=== PATIENT | female | born 1985 | race Two or more races ===

== ENCOUNTER 2018-01-24 23:56 | Observation (INO) | payer OTHER ==
[2014-09-01 12:29] VITALS: BP 110/62
[~2018-01-24] VITALS: Ht 160 cm; Wt 75.7 kg
[2018-01-24] MEDS ORDERED: IV RINGERS,LACTATED 1000ML 1,000 ML IV SCH (23:58)
[2018-01-25 00:30] LABS: BILIRUBIN,URINE NEGATIVE (NEG); CLARITY,URINE CLEAR; COLOR,URINE YELLOW; NITRITE,URINE NEGATIVE (NEG); PROTEIN,URINE NEGATIVE (NEG-TRACE); UROBILINOGEN,URINE 0.2 mg/dL (0.2 mg/dL)
[2018-01-25 00:37] LABS: BACTERIA,URINE MODERATE /HPF (0-FEW); BARBITURATES NEG (NEG); BENZODIAZEPINES NEG (NEG); CANNABINOIDS NEG (NEG); COCAINE NEG (NEG); METHADONE NEG (NEG); OPIATES NEG (NEG); PHENCYCLIDINE NEG (NEG); RBC,URINE 0 /HPF (0-2)
[2018-01-25 00:38] LABS: SQUAMOUS EPITHELIAL CELL,UR FEW /LPF
[2018-01-25 00:41] LABS: AMPHETAMINE/METHAMPHETAMINE NEG (NEG)
== END 2018-01-25 02:25 | disposition home or self-care (01) ==
LOC: 3 SO LND 23:56
PROVIDERS: ADMIT Obstetrics & Gynecology; ATTEND Obstetrics & Gynecology
DX: O26.893 Other specified pregnancy related conditions, third trimester (principal); R10.9 Unspecified abdominal pain; Z3A.38 38 weeks gestation of pregnancy; Z79.899 Other long term (current) drug therapy
CPT/HCPCS: 80307; 81001; 87086; G0378; G0379; G0479

== ENCOUNTER 2018-01-30 17:10 | Inpatient (IN) | payer OTHER ==
[~2018-01-30] VITALS: Ht 160 cm; Wt 76.7 kg
[~2018-01-30 17:10] MED LIST: PENICILLIN G K 2,500,000 UNIT in IV DEXTROSE 5% 50 ML IV SCH
[2018-01-30] MEDS ORDERED: IV RINGERS,LACTATED 1000ML 1,000 ML IV SCH ×2 (17:22→18:14)
[2018-01-30] MEDS ORDERED: MAG HYDROX/ALUMINUM HYD/SIMETH 30 ML ORAL.SUSP PO PRN (17:30)
[2018-01-30] MEDS ORDERED: ONDANSETRON PF 4 MG/2 ML VIAL. IV PRN (17:30)
[2018-01-30 17:32] LABS: BILIRUBIN,URINE NEGATIVE (NEG); COLOR,URINE YELLOW; NITRITE,URINE NEGATIVE (NEG); PROTEIN,URINE NEGATIVE (NEG-TRACE); UROBILINOGEN,URINE 0.2 mg/dL (0.2 mg/dL)
[2018-01-30 17:38] LABS: CLARITY,URINE CLEAR
[2018-01-30 17:40] LABS: BACTERIA,URINE MANY /HPF (0-FEW); RBC,URINE 0 /HPF (0-2); SQUAMOUS EPITHELIAL CELL,UR MOD /LPF
[2018-01-30] MEDS ORDERED: OXYTOCIN 30 UNIT/500 ML PREMIX 500 ML IV PRN ×2 (18:15)
[2018-01-30] MEDS ORDERED: BUTORPHANOL 2 MG/ML VIAL. IV PRN ×2 (18:15)
[2018-01-30] MEDS ORDERED: PENICILLIN G K 5,000,000 UNIT in IV DEXTROSE 5% 100ML 100 ML IV ONE (18:15)
[2018-01-30] MEDS ORDERED: IBUPROFEN 800 MG TABLET. PO PRN (18:15)
[2018-01-30] MEDS ORDERED: LIDOCAINE 1% PF 30 ML VIAL. INJ PRN (18:15)
[2018-01-30] MEDS ORDERED: fentaNYL PF VIAL 100 MCG/2 ML VIAL IV PRN ×2 (18:15)
[2018-01-30] MEDS ORDERED: TERBUTALINE 1 MG/ML VIAL. SQ PRN (18:15)
[2018-01-30] MEDS ORDERED: 0.9 % SODIUM CHLORIDE 10 ML DISP.SYRIN. IV PRN (18:15)
[2018-01-30 18:50] LABS: BASO # 0.1 x10^3/uL (0.0-0.2); BASO % 1 % (0-3); EOS # 0.4 x10^3/uL (0.0-0.7); EOS % 5 % (0-3); HEMATOCRIT 34.8 % (36.0-47.0); HEMOGLOBIN 11.9 g/dL (12.0-15.5); LYMPH # 1.9 x10^3/uL (1.0-4.8); LYMPH % 21 % (24-48); MEAN CORPUSCULAR HEMOGLOBIN 29 pg (25-35); MEAN CORPUSCULAR HGB CONC 34 g/dL (31-37); MEAN CORPUSCULAR VOLUME 84 fL (79-100); MONO # 0.5 x10^3/uL (0.0-1.1); MONO % 5 % (0-9); NEUT # 6.1 x10^3uL (1.8-7.7); NEUT % 68 % (31-73); PLATELET COUNT 230 x10^3/uL (140-400); RED BLOOD COUNT 4.16 x10^6/uL (3.50-5.40); RED CELL DISTRIBUTION WIDTH 14.8 % (11.5-14.5)
[2018-01-31 00:58] VITALS: BP 102/68
[2018-01-31] MEDS: ACETAMINOPHEN 325 MG TABLET. PO PRN ×3 (01:04→22:11)
[2018-01-31] MEDS ORDERED: MAGNESIUM HYDROXIDE 2,400 MG/30 ML ORAL.SUSP. PO PRN (03:00)
[2018-01-31] MEDS ORDERED: 0.9 % SODIUM CHLORIDE 10 ML DISP.SYRIN. IV PRN (03:00)
[2018-01-31] MEDS ORDERED: diphenhydrAMINE HCL 25 MG CAPSULE PO PRN (03:00)
[2018-01-31] MEDS ORDERED: MAG HYDROX/ALUMINUM HYD/SIMETH 30 ML ORAL.SUSP PO PRN (03:00)
[2018-01-31] MEDS ORDERED: PENICILLIN G K 2,500,000 UNIT in IV DEXTROSE 5% 50 ML IV SCH (03:00)
[2018-01-31] MEDS ORDERED: SIMETHICONE 80 MG TAB.CHEW PO PRN (03:00)
[2018-01-31] MEDS ORDERED: ZOLPIDEM 5 MG TABLET. PO PRN (03:00)
[2018-01-31] MEDS ORDERED: HYDROCORTISONE 1% TOPICAL OINTMENT 30GM TUBE. TP PRN (03:00)
[2018-01-31] MEDS ORDERED: ACETAMINOPHEN 325 MG TABLET. PO PRN (03:00)
[2018-01-31] MEDS ORDERED: OXYTOCIN 30 UNIT/500 ML PREMIX 500 ML IV PRN (03:00)
[2018-01-31] MEDS ORDERED: PHENYLEPH/MINERAL OIL/PETROLAT RECTAL OINTMENT 28GM TUBE. RC PRN (03:00)
--- NOTE | 2018-01-31 04:11 | PDOC ---
VAGINAL DELIVERY DATE DATE: 01/31/18 TIME: 04:08 : 5 Para: 2 EDC: Feb 02, 2018 VAGINAL DELIVERY: VTX VACCUM ASSISTED: Yes PLACENTA: Spontaneous 7/9 SEX: Female WEIGHT Weight [ ] Nuchal Cord: Yes, Times 1, Loose Amniotic Fluid: Clear PAIN: Natural EPISIOTOMY: No EXTENSION: No EBL 300cc COMPLICATIONS None CONDITION Stable Signs of Intrauterine Infectio: None Shoulder Dystocia: No DIAGNOSIS KRISTIAN Berman MD Jan 31, 2018 04:11
--- NOTE | 2018-01-31 04:56 | PDOC1 ---
OB - History Hx of Present Care: Good Care Ultrasounds: No ultrasounds Obstetrical Complications: None Medical Complications: None Past Family/Social History * Past Medical, Surgical, Family and Obstetric Histories reviewed from chart. Blood Type: O- Rubella: Immune RPR/VDRL: Negative GBS Status: Negative HBsAG: Negative OB - Chief Complaint & HPI Date of Admission: Date of Admission: Jan 30, 2018 at 17:10 Chief Complaint/History : 5 Para: 2 EGA: 40 Reason for admission: active labor Admission Nurse Assessment Rev: Yes OB - Admission Exam Physical Exam Vitals: VS - Last 72 Hours, by Label Date Time Temp Pulse Resp B/P (MAP) Pulse Ox O2 Delivery O2 Flow Rate FiO2 01/31/18 01:50 18 99 Room Air 01/31/18 01:13 20 Room Air 01/31/18 00:58 98.9 100 18 102/68 (79) Room Air 98.9 HEENT: Normal Heart: Regular Rate Lungs: Clear, Equal Abdomen: Gravid Extremities: Edema Reflexes: Normal Cervical Dilatation: 4cm Effacement: 75% Station: -3 Membranes: Intact Heart Rate: Normal Accelerations: Accelerations Present Short Term Variability: Present 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 RAMON QUEZADA Jr, MD Jan 31, 2018 04:56
[2018-01-31] MEDS: BENZOCAINE 20% TOPICAL AEROSOL SPRAY 57GM CAN. TP PRN ×2 (06:20→11:03)
[2018-01-31 06:43] VITALS: BP 108/46
[2018-01-31 07:45] VITALS: BP 109/65
[2018-01-31] MEDS ORDERED: FERROUS SULFATE 325 MG TABLET. PO SCH (08:00)
[2018-01-31] MEDS: IBUPROFEN 800 MG TABLET. PO PRN (16:40)
[2018-01-31 18:16] VITALS: BP 106/68
[2018-01-31 21:25] VITALS: BP 99/64
[2018-01-31] MEDS: oxyCODONE/APAP 5/325 1 TAB TABLET PO PRN (22:12)
[2018-02-01] MEDS: IBUPROFEN 800 MG TABLET. PO PRN ×2 (03:32→12:27)
[2018-02-01 04:08] VITALS: BP 90/63
[2018-02-01 11:00] VITALS: BP 99/70
[2018-02-01] MEDS: oxyCODONE/APAP 5/325 1 TAB TABLET PO PRN (12:26)
--- NOTE | 2018-02-01 12:59 | PDOC ---
OB Progress Note Date of Service 02/01/18 Time of Evaluation 1255 Notes Pt. feeling well. No complaints. Lab Laboratory Tests Test 01/30/18 17:22 01/30/18 18:38 02/01/18 05:30 Urine Collection Type Unknown Urine Color Yellow Urine Clarity Clear Urine pH 6.0 Urine Specific [place] 1.025 Urine Protein Negative mg/dL (NEG-TRACE) Urine Glucose (UA) Negative mg/dL (NEG) Urine Ketones (Stick) Negative mg/dL (NEG) Urine Blood Negative (NEG) Urine Nitrite Negative (NEG) Urine Bilirubin Negative (NEG) Urine Urobilinogen Dipstick 0.2 mg/dL (0.2 mg/dL) Urine Leukocyte Esterase Moderate (NEG) Urine RBC 0 /HPF (0-2) Urine WBC 1-4 /HPF (0-4) Urine Squamous Epithelial Cells Mod /LPF Urine Bacteria Many /HPF (0-FEW) Urine Mucus Marked /LPF White Blood Count 9.0 x10^3/uL (4.0-11.0) Red Blood Count 4.16 x10^6/uL (3.50-5.40) Hemoglobin 11.9 g/dL (12.0-15.5) Hematocrit 34.8 % (36.0-47.0) 34.4 % (36.0-47.0) Mean Corpuscular Volume 84 fL (79-100) Mean Corpuscular Hemoglobin 29 pg (25-35) Mean Corpuscular Hemoglobin Concent 34 g/dL (31-37) Red Cell Distribution Width 14.8 % (11.5-14.5) Platelet Count 230 x10^3/uL (140-400) Neutrophils (%) (Auto) 68 % (31-73) Lymphocytes (%) (Auto) 21 % (24-48) Monocytes (%) (Auto) 5 % (0-9) Eosinophils (%) (Auto) 5 % (0-3) Basophils (%) (Auto) 1 % (0-3) Neutrophils # (Auto) 6.1 x10^3uL (1.8-7.7) Lymphocytes # (Auto) 1.9 x10^3/uL (1.0-4.8) Monocytes # (Auto) 0.5 x10^3/uL (0.0-1.1) Eosinophils # (Auto) 0.4 x10^3/uL (0.0-0.7) Basophils # (Auto) 0.1 x10^3/uL (0.0-0.2) Treponema pallidum Antibody Nonreactive (Nonreactive) Laboratory Tests Test 02/01/18 05:30 Hematocrit 34.4 % (36.0-47.0) Medications Current Medications Ringer's Solution 1,000 ml @ 125 mls/hr Q8H IV ; Start 01/30/18 at 17:22; Stop 01/31/18 at 11:30; Status DC Al Hydroxide/Mg Hydroxide (Mylanta Plus Xs) 15 ml PRN Q4HRS PRN PO HEARTBURN / GAS; Start 01/30/18 at 17:30; Status Cancel Ondansetron HCl (Zofran) 4 mg PRN Q6HRS PRN IV NAUSEA; Start 01/30/18 at 17:30 Sodium Chloride (Normal Saline Flush) 3 ml QSHIFT PRN IV AFTER MEDS AND BLOOD DRAWS; Start 01/30/18 at 18:15 Ringer's Solution 1,000 ml @ 125 mls/hr Q8H IV Last administered on 01/30/18at 21:19; Start 01/30/18 at 18:14; Stop 01/31/18 at 20:54; Status DC Butorphanol Tartrate (Stadol) 1 mg PRN Q1HR PRN IV mild to moderate labor pain ; Start 01/30/18 at 18:15; Status Cancel Butorphanol Tartrate (Stadol) 2 mg PRN Q1HR PRN IV Severe labor pain Last administered on 01/31/18at 01:13; Start 01/30/18 at 18:15; Stop 01/31/18 at 11:30 ; Status DC Fentanyl Citrate (Fentanyl 2ml Vial) 50 mcg PRN Q30MIN PRN IV Mild to moderate pain; Start 01/30/18 at 18:15 Fentanyl Citrate (Fentanyl 2ml Vial) 100 mcg PRN Q30MIN PRN IV Severe pain; Start 01/30/18 at 18:15 Terbutaline Sulfate (Brethine) 0.25 mg 1X PRN PRN SQ SEE COMMENTS; Start at 18:15; Stop 01/31/18 at 18:14; Status DC Lidocaine HCl (Xylocaine 1% Pf 30ml Vial) 30 ml 1X PRN PRN INJ SEE COMMENTS; Start 01/30/18 at 18:15; Stop 02/01/18 at 18:14 Oxytocin/Sodium Chloride 500 ml @ 0 mls/hr CONT PRN IV SEE I/O RECORD; Start at 18:15; Stop 01/31/18 at 11:30; Status DC Oxytocin/Sodium Chloride 500 ml @ 0 mls/hr CONT PRN PRN IV Post delivery bleeding Last administered on 01/31/18at 01:14; Start 01/30/18 at 18:15 Ibuprofen (Motrin) 800 mg PRN Q6HRS PRN PO PAIN PREVENTION/INFLAMMATION Last administered on 01/31/18at 06:20; Start 01/30/18 at 18:15; Stop 01/31/18 at 11:30 ; Status DC Penicillin G Potassium [id number] unit/Dextrose 100 ml @ 100 mls/hr 1X ONCE IV Last administered on 01/30/18at 21:19; Start 01/30/18 at 18:15; Stop 01/30/18 at 19:14; Status DC Penicillin G Potassium [id number] unit/Dextrose 50 ml @ 100 mls/hr Q4H IV ; Start 01/30/18 at 10:30; Stop 01/31/18 at 01:03; Status DC Acetaminophen (Tylenol) 650 mg PRN Q6HRS PRN PO headache Last administered on at 22:11; Start 01/31/18 at 01:00 Penicillin G Potassium [id number] unit/Dextrose 50 ml @ 100 mls/hr Q4H IV Last administered on 01/31/18at 02:03; Start 01/31/18 at 03:00; Stop 01/31/18 at 11:31 ; Status DC Sodium Chloride (Normal Saline Flush) 10 ml QSHIFT PRN IV AFTER MEDS AND BLOOD DRAWS; Start 01/31/18 at 03:00 Oxytocin/Sodium Chloride 500 ml @ 62.5 mls/hr CONT PRN IV SEE I/O RECORD; Start 01/31/18 at 03:00; Stop 01/31/18 at 10:59; Status DC Acetaminophen (Tylenol) 650 mg PRN Q6HRS PRN PO MILD PAIN / TEMP; Start at 03:00 Ibuprofen (Motrin) 800 mg PRN Q8HRS PRN PO INFLAMMATION Last administered on at 12:27; Start 01/31/18 at 03:00 Magnesium Hydroxide (Milk Of Magnesia) 2,400 mg PRN DAILY PRN PO CONSTIPATION; Start 01/31/18 at 03:00 Al Hydroxide/Mg Hydroxide (Mylanta Plus Xs) 30 ml PRN Q4HRS PRN PO HEARTBURN / GAS; Start 01/31/18 at 03:00 Simethicone (Gas-X) 80 mg PRN AFTMEALHC PRN PO GAS / BLOATING; Start 01/31/18 at 03:00 Diphenhydramine HCl (Benadryl) 25 mg PRN Q6HRS PRN PO ITCHING; Start 01/31/18 at 03:00 Benzocaine (Americaine) 1 spray PRN QID PRN TP TOPICAL PAIN Last administered on 01/31/18at 11:03; Start 01/31/18 at 03:00 Phenyleph/Shark Oil/Min Oil/Petrol (Preparation H) 1 sienna PRN QID PRN RC RECTAL PAIN; Start 01/31/18 at 03:00 Hydrocortisone (Cortaid) 1 sienna PRN QID PRN TP PERINEAL PAIN; Start 01/31/18 at 03:00 Ferrous Sulfate (Feosol) 325 mg BIDWMEALS PO ; Start 01/31/18 at 08:00 Zolpidem Tartrate (Ambien) 5 mg PRN QHS PRN PO INSOMNIA, MAY REPEAT X1; Start 01/31/18 at 03:00 Info (Do NOT chart on this placeholder) 1 ea 1X PRN PRN MC SEE COMMENTS; Start 01/31/18 at 03:00 Oxycodone/ Acetaminophen (Percocet 5/325) 2 tab PRN Q4HRS PRN PO PAIN Last administered on 02/01/18at 12:26; Start 01/31/18 at 22:00 Exam Abd: soft, non tender, fundus firm Assessment PPD#1 s/p Plan of Care: Continue current Tx, Mgmt RAMON QUEZADA Jr, MD Feb 01, 2018 12:59
[2018-02-01 15:00] VITALS: BP 97/60
[2018-02-01 18:20] VITALS: BP 99/64
[2018-02-01 22:06] VITALS: BP 100/65
[2018-02-02] MEDS: oxyCODONE/APAP 5/325 1 TAB TABLET PO PRN (02:29)
[2018-02-02] MEDS: IBUPROFEN 800 MG TABLET. PO PRN ×2 (02:29→10:15)
[2018-02-02 05:18] VITALS: BP 100/64
[2018-02-02 10:16] VITALS: BP 98/64
[2018-02-02 16:30] VITALS: BP 112/75
--- NOTE | 2018-02-02 17:18 | DISCH ---
DISCHARGE INSTRUCTIONS Condition on Discharge Condition on Discharge: Stable Activity After Discharge Activity Instructions for Disc: Activity as tolerated, Avoid exertion Bathing Instructions: No Tub Bath until see Lifting Instructions after Dis: No heavy lifting, No pulling or pushing, Do not lift >10 pounds Driving Instructions after Dis: Do not drive today Weight Bearing Status after Di: No restrictions Sexual Activity Restrictions: nothing per vagina for 4-6wks Diet after Discharge Diet after Discharge: Regular Diet Texture: Regular Liquid Texture: Thin Liquid Swallowing Supervision: None needed Contacting the [facility] after DC Call your doctor for: Concerns you may have Follow-Up Follow Up With: Shalini 6 wks Treatment/Equipment after DC Adaptive Equipment Issued: None RAMON QUEZADA Jr, MD Feb 02, 2018 17:18
--- NOTE | 2018-02-02 17:18 | PDOC3 ---
OB DISCHARGE SUMMARY DATE OF ADMISSION: 01/31/18 DATE OF DISCHARGE: 02/02/18 REASON FOR ADMISSION: Onset of labor INTRAPARTUM PROCEDURES: Spontanous Vag Deliv DISCHARGE DIAGNOSIS: Term Delivered DISCHARGE INFORMATION: Activity (ad miguel angel), Diet (regular), Instructions (pelvic rest x 6 wks) HOSPITAL COURSE Term gestation presented in active labor and delivered vaginally without any complications. RAMON QUEZADA Jr, MD Feb 02, 2018 17:18
[2018-02-02] MEDS ORDERED: IBUP800T19 PO (17:19)
[2018-02-02] MEDS ORDERED: HYDR-971 PO (17:20)
== END 2018-02-02 17:47 | disposition home or self-care (01) | DRG 775 ==
LOC: OBSVTOIN 17:10 → 3 SO LND 17:10 → 3 NORTH 01-31 06:30
PROVIDERS: ADMIT Obstetrics & Gynecology; ATTEND Obstetrics & Gynecology
PROC: 10D07Z6 Extraction of Products of Conception, Vacuum, Via Natural or Artificial Opening (ICD-10-PCS; principal; 2018-01-31)
PROC: 3E0234Z Introduction of Serum, Toxoid and Vaccine into Muscle, Percutaneous Approach (ICD-10-PCS; 2018-02-02)
DX: O69.81X0 Labor and delivery complicated by cord around neck, without compression, not applicable or unspecified (principal); Z37.0 Single live birth; Z3A.39 39 weeks gestation of pregnancy; Z23 Encounter for immunization
CPT/HCPCS: 36415; 81001; 85014; 85025; 86592; 86850; 86900; 86901; 87086; 90471; 90756; J2540; J2590; J7120; Q2035

== ENCOUNTER 2018-03-02 15:33 | Emergency (ER) | payer OTHER ==
[~2018-03-02] VITALS: Ht 162.6 cm; Wt 69.0 kg
[~2018-03-02 15:33] MED LIST changes: +HYDR-971 PO; +IBUP800T19 PO; -PENICILLIN G K 2,500,000 UNIT in IV DEXTROSE 5% 50 ML IV SCH
[2018-03-02 15:47] VITALS: BP 114/70
[2018-03-02] MEDS ORDERED: DOCU-109 PO (16:04)
[2018-03-02] MEDS ORDERED: HYDR30CR61 TP (16:04)
--- NOTE | 2018-03-02 16:04 | PHYS DOC ---
Past Medical History Past Medical History: Other Additional Past Medical Histor: 2 miscarriages Past Surgical History: Appendectomy Alcohol Use: None Drug Use: None Adult General Chief Complaint Chief Complaint: RECTAL BLEED HPI HPI 32-year-old female presents for evaluation of red blood she noted on her stool during bowel movements for the last 3 days. Patient reports had a vaginal 4 weeks ago. Did not have any tearing that she is aware of. Is no longer having vaginal bleeding. She reports no blood other than with bowel movements. She reports harder than normal stools. She has not been taking any laxatives or stool softeners. She has not taken any pain medications. She denies any nausea, vomiting or abdominal pain. Review of Systems Review of Systems Constitutional: Denies fever or chills [] Respiratory: Denies cough or shortness of breath [] Cardiovascular: No additional information not addressed in HPI [] GI: Denies abdominal pain, nausea, vomiting, bloody stools or diarrhea [] : Denies dysuria or hematuria [] Musculoskeletal: Denies back pain or joint pain [] Integument: Denies rash or skin lesions [] Neurologic: Denies headache, focal weakness or sensory changes [] Endocrine: Denies polyuria or polydipsia [] All other systems were reviewed and found to be within normal limits, except as documented in this note. Allergies Allergies Allergies Coded Allergies Type Severity Reaction Last Updated Verified No Known Drug Allergies 03/17/14 No Physical Exam Physical Exam Constitutional: Well developed, well nourished, no acute distress, non-toxic appearance. [] Cardiovascular:Heart rate regular rhythm, no murmur [] Lungs & Thorax: Bilateral breath sounds clear to auscultation [] Abdomen: Bowel sounds normal, soft, no tenderness, no masses, no pulsatile masses. [] Skin: Warm, dry, no erythema, no rash. [] RECTUM: HEALTH AND WELLNESS ADVISOR PRESENT FR EXAM, PT HAS RECTAL FISSURE AT 6 O CLOCK POSITION, NO ACTIVE BLEEDING, ONE SMALL NON-THROMBOSED HEMORRHOID NOTED JUST INSIDE RECTAL VAULT, NO ACTIVE RECTAL BLEEDING Neurologic: Alert and oriented X 3, normal motor function, normal sensory function, no focal deficits noted. [] Psychologic: Affect normal, judgement normal, mood normal. [] EKG EKG [] Radiology/Procedures Radiology/Procedures [] Course & Med Decision Making Course & Med Decision Making Pertinent Labs and Imaging studies reviewed. (See chart for details) [Patient has a small nonbleeding rectal fissure as well as non-thrombosed hemorrhoid, this is likely secondary to constipation. Discussed findings with patient, will give her prescription for stool softeners and Anusol. Recommend follow-up with primary care doctor in 2-3 days, return to ER for new or worsening symptoms.] Dragon Disclaimer Dragon Disclaimer This electronic medical record was generated, in whole or in part, using a voice recognition dictation system. Departure Departure Impression: Primary Impression: Rectal fissure Additional Impressions: Hemorrhoid Constipation Disposition: HOME, SELF-CARE Condition: STABLE Referrals: RAMON QUEZADA Jr, MD (PCP) Patient Instructions: Constipation, Adult, [id number], Hemorrhoids Scripts Hydrocortisone (ANUSOL-HC) 30 Gm Cream..g. 1 PRECIOUS TP BID, #30 GM 1 Refill Prov: JANET LUCAS APRN 03/02/18 Docusate Sodium (COLACE) 100 Mg Capsule 1 CAP PO BID, #30 CAP Prov: JANET LUCAS APRN 03/02/18 Problem Qualifiers JANET LUCAS APRN Mar 02, 2018 16:04
== END 2018-03-02 16:14 | disposition home or self-care (01) ==
LOC: ER 15:33
DX: O87.2 Hemorrhoids in the puerperium (principal); K60.4 Rectal fistula; K59.00 Constipation, unspecified; Z90.89 Acquired absence of other organs
CPT/HCPCS: 99283